=== PATIENT | male | born 1930 | race Caucasian/White ===

== ENCOUNTER 2017-01-02 11:58 | Emergency (ER) | payer MEDICARE, OTHER ==
[~2017-01-02 11:58] MED LIST: ASPIRIN EC325 MG PO; BACTRIM DS TAB1 EACH PO; CALCIUM 250+D1 EACH PO; CATAPRES0.1 MG PO; CLEOCIN150 MG PO; COLACE100 MG PO; COZAAR50 MG PO; DULCOLAX5 MG PO; FLANDERS BUTTO113 GM TOP; FLOMAX0.4 MG PO; GLUCOTROL XL5 MG PO; GLUCOTROL10 MG PO; HYDRALAZINE HCL10 MG PO; JUVEN PACKET1 EACH PO; KRISTALOSE20 GM PO; LEVAQUIN250 MG PO; MILK OF MA400 MG/5 M PO; ONDANSETRON HCL4 MG PO; PROSCAR5 MG PO; PROTONIX40 MG PO; TENORMIN50 MG PO; XANAX0.5 MG PO
[2017-01-02 12:49] LABS: URINE BILIRUBIN NEGATIVE (NEGATIVE); URINE BLOOD 3+ (NEGATIVE); URINE GLUCOSE (UA) 100 mg/dL (NORMAL); URINE KETONE TRACE (NEGATIVE); URINE LEUKOCYTE ESTERASE 2+ (NEGATIVE); URINE NITRATE NEGATIVE (NEGATIVE); URINE PROTEIN 3+ (NEGATIVE); UROBILINOGEN NORMAL mg/dL (<1.0)
[2017-01-02 13:05] LABS: URINE RBC TNTC /[HPF] (0-2)
== END 2017-01-02 13:46 | disposition home or self-care (01) ==
LOC: ER 11:58
PROVIDERS: Internal Medicine
DX: T83.84XA Pain due to genitourinary prosthetic devices, implants and grafts, initial encounter (principal); R31.9 Hematuria, unspecified; R30.0 Dysuria; Z87.440 Personal history of urinary (tract) infections; Z88.8 Allergy status to other drugs, medicaments and biological substances
CPT/HCPCS: 81001; 99070; 99283

== ENCOUNTER 2017-01-07 10:52 | Emergency (ER) | payer MEDICARE, OTHER ==
[2017-01-07 11:30] LABS: BASO # 0.1 10_X3_uL (0.0-0.1); BASO % 0.9 % (0.2-1.2); EOS # 0.2 10_X3_uL (0.0-0.5); EOS % 2.6 % (0.8-7.0); GRAN # 4.3 10_X3_uL (1.8-5.4); GRAN % 62.2 % (34.0-67.9); HEMATOCRIT 33.3 % (40-51); HEMOGLOBIN 11.6 g/dL (13.7-17.5); LYMPH # 1.9 10_X3_uL (1.3-3.6); LYMPH % 27.5 % (21.8-53.1); MEAN CORPUSCULAR HEMOGLOBIN 29.8 pg (27.0-33.0); MEAN CORPUSCULAR HGB CONC 34.8 g/dL (32.0-36.0); MEAN CORPUSCULAR VOLUME 85.6 fL (79-92); MEAN PLATELET VOLUME 9.1 fl (7.5-11.5); MONO # 0.5 10_X3_uL (0.3-0.8); MONO % 6.8 % (5.3-12.2); PLATELET COUNT 110 x10_3/uL (163-337); RED BLOOD COUNT 3.89 x10_6/uL (4.6-6.1); RED CELL DISTRIBUTION WIDTH 13.6 % (11.6-14.4); WHITE BLOOD COUNT 6.9 x10_3/uL (4.2-9.1)
[2017-01-07 11:40] LABS: URINE BILIRUBIN NEGATIVE (NEGATIVE); URINE BLOOD 3+ (NEGATIVE); URINE GLUCOSE (UA) NORMAL (NORMAL); URINE KETONE NEGATIVE (NEGATIVE); URINE LEUKOCYTE ESTERASE 2+ (NEGATIVE); URINE NITRATE POSITIVE (NEGATIVE); URINE PROTEIN 3+ (NEGATIVE); URINE RBC TNTC /[HPF] (0-2); URINE SQUAMOUS EPITHELIAL CELL 0-10 /[HPF] (NONE SEEN); URINE WBC 0-5 /[HPF] (0-3); UROBILINOGEN NORMAL mg/dL (<1.0)
[2017-01-07 11:45] LABS: CREATININE 1.6 mg/dL (0.6-1.3)
== END 2017-01-07 12:12 | disposition home or self-care (01) ==
LOC: ER 10:52
PROVIDERS: Family Medicine
DX: N40.0 Benign prostatic hyperplasia without lower urinary tract symptoms (principal); N41.9 Inflammatory disease of prostate, unspecified; Z88.8 Allergy status to other drugs, medicaments and biological substances
CPT/HCPCS: 36415; 51702; 80048; 81001; 85025; 99070; 99282; 99283

== ENCOUNTER 2017-01-17 14:40 | Emergency (ER) | payer MEDICARE, OTHER ==
[2017-01-17 16:29] LABS: URINE BILIRUBIN NEGATIVE (NEGATIVE); URINE BLOOD TRACE (NEGATIVE); URINE GLUCOSE (UA) 100 mg/dL (NORMAL); URINE KETONE NEGATIVE (NEGATIVE); URINE LEUKOCYTE ESTERASE TRACE (NEGATIVE); URINE NITRATE NEGATIVE (NEGATIVE); URINE PROTEIN 3+ (NEGATIVE); UROBILINOGEN NORMAL mg/dL (<1.0)
[2017-01-17 16:54] LABS: URINE BACTERIA FEW (NONE SEEN); URINE FINE GRANULAR CAST 0-2 /[HPF] (NONE SEEN); URINE HYALINE CAST RARE /[HPF] (0-1/hpf); URINE RENAL EPITHELIAL CELLS RARE /[HPF] (NONE SEEN)
== END 2017-01-17 18:00 | disposition home or self-care (01) ==
LOC: ER 14:40
PROVIDERS: General Practice
DX: T83.518A Infection and inflammatory reaction due to other urinary catheter, initial encounter (principal); N39.0 Urinary tract infection, site not specified; Z79.899 Other long term (current) drug therapy; Z88.8 Allergy status to other drugs, medicaments and biological substances
CPT/HCPCS: 51702; 81001; 87086; 87186; 99070; 99282; 99283

== ENCOUNTER 2017-01-21 10:22 | Observation (INO) | payer MEDICARE | END 2017-01-22 09:50 | disposition other institution (70) | LOC: MS 10:22 | PROVIDERS: ADMIT Family Medicine | DX: N39.0 Urinary tract infection, site not specified (principal); E11.22 Type 2 diabetes mellitus with diabetic chronic kidney disease; I13.0 Hypertensive heart and chronic kidney disease with heart failure and stage 1 through stage 4 chronic kidney disease, or unspecified chronic kidney disease; N18.9 Chronic kidney disease, unspecified; I50.33 Acute on chronic diastolic (congestive) heart failure; N17.9 Acute kidney failure, unspecified; J44.0 Chronic obstructive pulmonary disease with (acute) lower respiratory infection; J18.9 Pneumonia, unspecified organism; D69.6 Thrombocytopenia, unspecified; R41.0 Disorientation, unspecified; D64.9 Anemia, unspecified; B96.5 Pseudomonas (aeruginosa) (mallei) (pseudomallei) as the cause of diseases classified elsewhere; R06.02 Shortness of breath; R05 Cough; Z98.42 Cataract extraction status, left eye; Z98.41 Cataract extraction status, right eye; Z79.82 Long term (current) use of aspirin; Z79.899 Other long term (current) drug therapy; Z79.84 Long term (current) use of oral hypoglycemic drugs; Z16.24 Resistance to multiple antibiotics | CPT/HCPCS: 36415; 80053; 85025; 96365; 96367; 99070; G0378 ==

== ENCOUNTER 2017-01-21 10:22 | Inpatient (IN) | payer MEDICARE, OTHER ==
[~2017-01-21] VITALS: Ht 180.3 cm; Wt 79.0 kg
[2017-01-21 12:45] LABS: ALBUMIN 2.5 gm/dL (3.4-5.0); BILIRUBIN,TOTAL 0.24 mg/dL (0.0-1.0); CALCIUM 7.6 mg/dL (8.7-10.7); CREATININE 1.7 mg/dL (0.6-1.3); POTASSIUM 3.9 mmol/L (3.5-5.1); TOTAL PROTEIN 5.1 gm/dL (6.4-8.2)
[2017-01-21 17:11] LABS: BASO # 0.1 10_X3_uL (0.0-0.1); BASO % 1.4 % (0.2-1.2); EOS # 0.1 10_X3_uL (0.0-0.5); EOS % 2.5 % (0.8-7.0); GRAN # 3.4 10_X3_uL (1.8-5.4); GRAN % 66.6 % (34.0-67.9); HEMATOCRIT 30.2 % (40-51); LYMPH # 1.1 10_X3_uL (1.3-3.6); LYMPH % 20.9 % (21.8-53.1); MEAN CORPUSCULAR HEMOGLOBIN 29.7 pg (27.0-33.0); MEAN CORPUSCULAR HGB CONC 33.1 g/dL (32.0-36.0); MEAN CORPUSCULAR VOLUME 89.6 fL (79-92); MONO # 0.4 10_X3_uL (0.3-0.8); MONO % 8.6 % (5.3-12.2); PLATELET COUNT 76 x10_3/uL (163-337); RED BLOOD COUNT 3.37 x10_6/uL (4.6-6.1); RED CELL DISTRIBUTION WIDTH 13.6 % (11.6-14.4); WHITE BLOOD COUNT 5.1 x10_3/uL (4.2-9.1)
[2017-01-22 07:50] LABS: BASO % 0.9 % (0.2-1.2); EOS # 0.3 10_X3_uL (0.0-0.5); EOS % 6.9 % (0.8-7.0); GRAN # 2.4 10_X3_uL (1.8-5.4); GRAN % 51.3 % (34.0-67.9); HEMATOCRIT 26.4 % (40-51); HEMOGLOBIN 8.7 g/dL (13.7-17.5); LYMPH # 1.4 10_X3_uL (1.3-3.6); LYMPH % 29.6 % (21.8-53.1); MEAN CORPUSCULAR HEMOGLOBIN 29.6 pg (27.0-33.0); MEAN CORPUSCULAR VOLUME 89.8 fL (79-92); MEAN PLATELET VOLUME 10.4 fl (7.5-11.5); MONO # 0.5 10_X3_uL (0.3-0.8); MONO % 11.3 % (5.3-12.2); PLATELET COUNT 72 x10_3/uL (163-337); RED BLOOD COUNT 2.94 x10_6/uL (4.6-6.1); RED CELL DISTRIBUTION WIDTH 13.4 % (11.6-14.4); WHITE BLOOD COUNT 4.7 x10_3/uL (4.2-9.1)
[2017-01-22 07:58] LABS: ALBUMIN 2.1 gm/dL (3.4-5.0); BILIRUBIN,TOTAL 0.2 mg/dL (0.0-1.0); CALCIUM 7.2 mg/dL (8.7-10.7); CREATININE 1.8 mg/dL (0.6-1.3); POTASSIUM 4.3 mmol/L (3.5-5.1); TOTAL PROTEIN 4.3 gm/dL (6.4-8.2)
[2017-01-22 21:35] LABS: CKMB 1.6 ng/ml (0.0-5.0); TROP-I < 0.30 NG/ML (0.00-0.30)
[2017-01-23 07:48] LABS: HEMATOCRIT 27.1 % (40-51); HEMOGLOBIN 8.9 g/dL (13.7-17.5); MEAN CORPUSCULAR HEMOGLOBIN 29.7 pg (27.0-33.0); MEAN CORPUSCULAR HGB CONC 32.8 g/dL (32.0-36.0); MEAN CORPUSCULAR VOLUME 90.3 fL (79-92); RED CELL DISTRIBUTION WIDTH 13.2 % (11.6-14.4)
[2017-01-23 07:54] LABS: CALCIUM 7.1 mg/dL (8.7-10.7); POTASSIUM 4.3 mmol/L (3.5-5.1)
[2017-01-24 07:39] LABS: HEMOGLOBIN 10.1 g/dL (13.7-17.5); MEAN CORPUSCULAR HEMOGLOBIN 29.7 pg (27.0-33.0); MEAN CORPUSCULAR HGB CONC 32.6 g/dL (32.0-36.0); MEAN CORPUSCULAR VOLUME 91.2 fL (79-92); MEAN PLATELET VOLUME 10.5 fl (7.5-11.5); RED BLOOD COUNT 3.4 x10_6/uL (4.6-6.1); RED CELL DISTRIBUTION WIDTH 13.3 % (11.6-14.4); WHITE BLOOD COUNT 7.3 x10_3/uL (4.2-9.1)
[2017-01-24 07:50] LABS: CALCIUM 7.5 mg/dL (8.7-10.7); CREATININE 2.2 mg/dL (0.6-1.3); POTASSIUM 4.4 mmol/L (3.5-5.1)
[2017-01-25 07:17] LABS: CALCIUM 7.4 mg/dL (8.7-10.7); CREATININE 1.9 mg/dL (0.6-1.3); MAGNESIUM 2.1 mg/dL (1.8-2.4); POTASSIUM 4.7 mmol/L (3.5-5.1)
[2017-01-26 07:30] LABS: HEMATOCRIT 26.9 % (40-51); HEMOGLOBIN 8.8 g/dL (13.7-17.5); MEAN CORPUSCULAR HEMOGLOBIN 29.6 pg (27.0-33.0); MEAN CORPUSCULAR HGB CONC 32.7 g/dL (32.0-36.0); MEAN CORPUSCULAR VOLUME 90.6 fL (79-92); MEAN PLATELET VOLUME 10.4 fl (7.5-11.5); RED BLOOD COUNT 2.97 x10_6/uL (4.6-6.1); RED CELL DISTRIBUTION WIDTH 12.8 % (11.6-14.4)
[2017-01-26 07:39] LABS: CALCIUM 7.2 mg/dL (8.7-10.7); CREATININE 2.1 mg/dL (0.6-1.3); POTASSIUM 4.6 mmol/L (3.5-5.1)
== END 2017-01-26 10:59 | disposition swing bed (61) | DRG 689 ==
LOC: MS 10:22
PROVIDERS: ADMIT Family Medicine
DX: N39.0 Urinary tract infection, site not specified (principal); I50.33 Acute on chronic diastolic (congestive) heart failure; J18.9 Pneumonia, unspecified organism; I13.0 Hypertensive heart and chronic kidney disease with heart failure and stage 1 through stage 4 chronic kidney disease, or unspecified chronic kidney disease; N17.9 Acute kidney failure, unspecified; J44.0 Chronic obstructive pulmonary disease with (acute) lower respiratory infection; E11.22 Type 2 diabetes mellitus with diabetic chronic kidney disease; N18.9 Chronic kidney disease, unspecified; D69.6 Thrombocytopenia, unspecified; R41.0 Disorientation, unspecified; D64.9 Anemia, unspecified; R05 Cough; R06.02 Shortness of breath; B96.5 Pseudomonas (aeruginosa) (mallei) (pseudomallei) as the cause of diseases classified elsewhere; Z16.24 Resistance to multiple antibiotics; Z98.42 Cataract extraction status, left eye; Z98.41 Cataract extraction status, right eye; Z79.82 Long term (current) use of aspirin; Z79.899 Other long term (current) drug therapy; Z79.84 Long term (current) use of oral hypoglycemic drugs
CPT/HCPCS: 36415; 71020; 80048; 80053; 80061; 82550; 82553; 82962; 83036; 83735; 83880; 85025; 93306; 99070; J7040

== ENCOUNTER 2017-01-26 11:23 | Inpatient (IN) | payer MEDICARE, OTHER ==
[~2017-01-26] VITALS: Ht 180.3 cm; Wt 91.0 kg
[2017-01-27 07:32] LABS: HEMATOCRIT 27.7 % (40-51); HEMOGLOBIN 9.2 g/dL (13.7-17.5); MEAN CORPUSCULAR HEMOGLOBIN 29.9 pg (27.0-33.0); MEAN CORPUSCULAR HGB CONC 33.2 g/dL (32.0-36.0); MEAN CORPUSCULAR VOLUME 89.9 fL (79-92); MEAN PLATELET VOLUME 10.7 fl (7.5-11.5); RED BLOOD COUNT 3.08 x10_6/uL (4.6-6.1); RED CELL DISTRIBUTION WIDTH 12.6 % (11.6-14.4); WHITE BLOOD COUNT 5.1 x10_3/uL (4.2-9.1)
[2017-01-27 07:45] LABS: CALCIUM 7.4 mg/dL (8.7-10.7); CREATININE 2.1 mg/dL (0.6-1.3); POTASSIUM 4.8 mmol/L (3.5-5.1)
[2017-01-29 06:54] LABS: HEMATOCRIT 29.7 % (40-51); HEMOGLOBIN 9.8 g/dL (13.7-17.5); MEAN CORPUSCULAR HEMOGLOBIN 29.6 pg (27.0-33.0); MEAN CORPUSCULAR VOLUME 89.7 fL (79-92); MEAN PLATELET VOLUME 10.2 fl (7.5-11.5); RED BLOOD COUNT 3.31 x10_6/uL (4.6-6.1); RED CELL DISTRIBUTION WIDTH 12.7 % (11.6-14.4); WHITE BLOOD COUNT 5.5 x10_3/uL (4.2-9.1)
[2017-01-29 07:07] LABS: CALCIUM 7.5 mg/dL (8.7-10.7); CREATININE 1.9 mg/dL (0.6-1.3); POTASSIUM 4.9 mmol/L (3.5-5.1)
[2017-02-01 05:07] LABS: URINE BILIRUBIN NEGATIVE (NEGATIVE); URINE BLOOD TRACE (NEGATIVE); URINE GLUCOSE (UA) NORMAL (NORMAL); URINE KETONE NEGATIVE (NEGATIVE); URINE LEUKOCYTE ESTERASE TRACE (NEGATIVE); URINE NITRATE NEGATIVE (NEGATIVE); URINE PROTEIN 2+ (NEGATIVE); UROBILINOGEN NORMAL mg/dL (<1.0)
[2017-02-01 05:18] LABS: URINE SQUAMOUS EPITHELIAL CELL 0-10 /[HPF] (NONE SEEN)
[2017-02-01 08:12] LABS: HEMATOCRIT 28.9 % (40-51); HEMOGLOBIN 9.6 g/dL (13.7-17.5); MEAN CORPUSCULAR HEMOGLOBIN 29.4 pg (27.0-33.0); MEAN CORPUSCULAR HGB CONC 33.2 g/dL (32.0-36.0); MEAN CORPUSCULAR VOLUME 88.7 fL (79-92); MEAN PLATELET VOLUME 10.5 fl (7.5-11.5); RED BLOOD COUNT 3.26 x10_6/uL (4.6-6.1); RED CELL DISTRIBUTION WIDTH 12.4 % (11.6-14.4); WHITE BLOOD COUNT 7.3 x10_3/uL (4.2-9.1)
[2017-02-01 08:35] LABS: ALBUMIN 2.4 gm/dL (3.4-5.0); ALKALINE PHOSPHATASE 148 U/L (50-136); ALT/SGPT 17 U/L (7.53-40.17); AST/SGOT 23 U/L (6.66-35.34); BLOOD UREA NITROGEN 67 mg/dL (7-18); CALCIUM 7.7 mg/dL (8.7-10.7); CARBON DIOXIDE 23 mmol/L (21-32); CREATININE 1.8 mg/dL (0.6-1.3); GLUCOSE,RANDOM 186 mg/dL (70-99); POTASSIUM 5.5 mmol/L (3.5-5.1); SODIUM 143 mmol/L (136-145); TOTAL PROTEIN 5.1 gm/dL (6.4-8.2)
[2017-02-01 08:48] LABS: BILIRUBIN,TOTAL < 0.15 mg/dL (0.0-1.0)
== END 2017-02-01 13:15 | disposition home or self-care (01) | DRG 558 ==
LOC: SWING 11:23
PROVIDERS: Family Medicine; ADMIT Family Medicine
DX: M62.50 Muscle wasting and atrophy, not elsewhere classified, unspecified site (principal); N39.0 Urinary tract infection, site not specified; Z16.24 Resistance to multiple antibiotics; R53.1 Weakness; J44.9 Chronic obstructive pulmonary disease, unspecified; R10.30 Lower abdominal pain, unspecified; E11.9 Type 2 diabetes mellitus without complications; R60.0 Localized edema; I10 Essential (primary) hypertension; I51.9 Heart disease, unspecified; Z79.82 Long term (current) use of aspirin; Z79.899 Other long term (current) drug therapy; Z79.84 Long term (current) use of oral hypoglycemic drugs; Z88.8 Allergy status to other drugs, medicaments and biological substances
CPT/HCPCS: 36415; 80048; 80053; 81001; 82962; 83880; 94640; 94664; 97110; 97116; 99070; J2930

== ENCOUNTER 2017-02-03 11:06 | Emergency (ER) | payer MEDICARE, OTHER ==
[2017-02-03 11:27] LABS: BASO # 0.1 10_X3_uL (0.0-0.1); BASO % 0.6 % (0.2-1.2); EOS # 0.2 10_X3_uL (0.0-0.5); GRAN # 7.7 10_X3_uL (1.8-5.4); GRAN % 66.7 % (34.0-67.9); HEMATOCRIT 33.9 % (40-51); HEMOGLOBIN 11.6 g/dL (13.7-17.5); LYMPH # 2.6 10_X3_uL (1.3-3.6); LYMPH % 22.7 % (21.8-53.1); MEAN CORPUSCULAR HEMOGLOBIN 30.5 pg (27.0-33.0); MEAN CORPUSCULAR HGB CONC 34.2 g/dL (32.0-36.0); MEAN CORPUSCULAR VOLUME 89.2 fL (79-92); MONO # 0.9 10_X3_uL (0.3-0.8); PLATELET COUNT 207 x10_3/uL (163-337); RED CELL DISTRIBUTION WIDTH 13.1 % (11.6-14.4); WHITE BLOOD COUNT 11.5 x10_3/uL (4.2-9.1)
[2017-02-03 11:38] LABS: BILIRUBIN,TOTAL 0.24 mg/dL (0.0-1.0); CALCIUM 8.2 mg/dL (8.7-10.7); CREATININE 1.6 mg/dL (0.6-1.3); TOTAL PROTEIN 6.1 gm/dL (6.4-8.2)
[2017-02-03 11:44] LABS: ARTERIAL BLD GAS O2 SATURATION 98.6 % (94-98); ARTERIAL BLOOD GAS BASE EXCESS -1.2 mmol/L (-2.0-3.0); ARTERIAL BLOOD GAS HCO3 23.3 mmol/L (22-26); ARTERIAL BLOOD GAS PCO2 40.3 mmHg (35-48); ARTERIAL BLOOD GAS pH 7.38 (7.35-7.45)
[2017-02-03 12:20] LABS: URINE BILIRUBIN NEGATIVE (NEGATIVE); URINE BLOOD TRACE (NEGATIVE); URINE GLUCOSE (UA) NORMAL (NORMAL); URINE KETONE NEGATIVE (NEGATIVE); URINE LEUKOCYTE ESTERASE NEGATIVE (NEGATIVE); URINE NITRATE NEGATIVE (NEGATIVE); URINE PROTEIN 2+ (NEGATIVE); UROBILINOGEN NORMAL mg/dL (<1.0)
[2017-02-03 12:22] LABS: POTASSIUM 4.8 mmol/L (3.5-5.1)
[2017-02-03 12:31] LABS: URINE AMORPHOUS SEDIMENT 1+; URINE BACTERIA FEW (NONE SEEN); URINE RBC 0-5 /[HPF] (0-2); URINE SQUAMOUS EPITHELIAL CELL 0-10 /[HPF] (NONE SEEN); URINE WBC RARE /[HPF] (0-3)
== END 2017-02-03 15:45 | disposition left against medical advice (07) ==
LOC: ER 11:06
PROVIDERS: Emergency Medicine
DX: J81.1 Chronic pulmonary edema (principal); E11.9 Type 2 diabetes mellitus without complications; I10 Essential (primary) hypertension; R05 Cough; Z88.8 Allergy status to other drugs, medicaments and biological substances; Z79.899 Other long term (current) drug therapy; Z99.81 Dependence on supplemental oxygen
CPT/HCPCS: 36415; 36600; 71010; 80053; 81001; 82550; 82553; 82803; 83605; 83880; 85025; 86738; 87040; 87400; 87449; 93005; 94664; 96374; 96375; 99070; 99283-25; 99284; J2930

== ENCOUNTER 2017-02-13 11:45 | Emergency (ER) | payer MEDICARE, OTHER | END 2017-02-13 14:40 | disposition home or self-care (01) | LOC: ER 11:45 | DX: N39.0 Urinary tract infection, site not specified (principal); R31.9 Hematuria, unspecified; E11.9 Type 2 diabetes mellitus without complications; R10.30 Lower abdominal pain, unspecified; N48.89 Other specified disorders of penis; Z79.899 Other long term (current) drug therapy; Z79.82 Long term (current) use of aspirin; Z79.84 Long term (current) use of oral hypoglycemic drugs ==

== ENCOUNTER 2017-02-15 12:21 | Emergency (ER) | payer MEDICARE, OTHER | END 2017-02-15 15:16 | disposition other institution (70) | LOC: ER 12:21 | DX: N39.0 Urinary tract infection, site not specified (principal); N28.9 Disorder of kidney and ureter, unspecified; M54.5 Low back pain; E11.9 Type 2 diabetes mellitus without complications; J44.9 Chronic obstructive pulmonary disease, unspecified; I10 Essential (primary) hypertension; Z79.82 Long term (current) use of aspirin; Z79.899 Other long term (current) drug therapy; Z88.8 Allergy status to other drugs, medicaments and biological substances; E89.0 Postprocedural hypothyroidism | CPT/HCPCS: 99284; 99284-25 ==

== ENCOUNTER 2017-02-15 12:21 | Inpatient (IN) | payer MEDICARE, OTHER ==
[~2017-02-15] VITALS: Ht 180.3 cm; Wt 81.0 kg
[2017-02-15 13:24] LABS: BASO # 0.1 10_X3_uL (0.0-0.1); BASO % 0.9 % (0.2-1.2); EOS # 0.7 10_X3_uL (0.0-0.5); EOS % 7.1 % (0.8-7.0); GRAN % 68.3 % (34.0-67.9); HEMATOCRIT 32.2 % (40-51); LYMPH # 1.6 10_X3_uL (1.3-3.6); LYMPH % 15.4 % (21.8-53.1); MEAN CORPUSCULAR HEMOGLOBIN 29.6 pg (27.0-33.0); MEAN CORPUSCULAR HGB CONC 34.2 g/dL (32.0-36.0); MEAN CORPUSCULAR VOLUME 86.6 fL (79-92); MEAN PLATELET VOLUME 10.5 fl (7.5-11.5); MONO # 0.9 10_X3_uL (0.3-0.8); MONO % 8.3 % (5.3-12.2); PLATELET COUNT 87 x10_3/uL (163-337); RED BLOOD COUNT 3.72 x10_6/uL (4.6-6.1); RED CELL DISTRIBUTION WIDTH 13.3 % (11.6-14.4); WHITE BLOOD COUNT 10.3 x10_3/uL (4.2-9.1)
[2017-02-15 13:28] LABS: URINE BILIRUBIN NEGATIVE (NEGATIVE); URINE BLOOD 1+ (NEGATIVE); URINE GLUCOSE (UA) 50 mg/dL (NORMAL); URINE KETONE NEGATIVE (NEGATIVE); URINE LEUKOCYTE ESTERASE TRACE (NEGATIVE); URINE NITRATE NEGATIVE (NEGATIVE); URINE PROTEIN 3+ (NEGATIVE); UROBILINOGEN NORMAL mg/dL (<1.0)
[2017-02-15 13:39] LABS: URINE BACTERIA TRACE (NONE SEEN); URINE MUCUS TRACE; URINE WBC 0-5 /[HPF] (0-3)
[2017-02-15 13:41] LABS: ALBUMIN 2.5 gm/dL (3.4-5.0); BILIRUBIN,TOTAL 0.39 mg/dL (0.0-1.0); CALCIUM 7.6 mg/dL (8.7-10.7); CREATININE 1.7 mg/dL (0.6-1.3); TOTAL PROTEIN 5.5 gm/dL (6.4-8.2)
[2017-02-16 07:06] LABS: BASO # 0.1 10_X3_uL (0.0-0.1); BASO % 0.6 % (0.2-1.2); EOS # 0.6 10_X3_uL (0.0-0.5); EOS % 6.9 % (0.8-7.0); GRAN # 5.2 10_X3_uL (1.8-5.4); GRAN % 63.5 % (34.0-67.9); HEMATOCRIT 28.5 % (40-51); HEMOGLOBIN 9.6 g/dL (13.7-17.5); LYMPH # 1.6 10_X3_uL (1.3-3.6); LYMPH % 19.4 % (21.8-53.1); MEAN CORPUSCULAR HEMOGLOBIN 29.5 pg (27.0-33.0); MEAN CORPUSCULAR HGB CONC 33.7 g/dL (32.0-36.0); MEAN CORPUSCULAR VOLUME 87.7 fL (79-92); MEAN PLATELET VOLUME 10.5 fl (7.5-11.5); MONO # 0.8 10_X3_uL (0.3-0.8); MONO % 9.6 % (5.3-12.2); PLATELET COUNT 83 x10_3/uL (163-337); RED BLOOD COUNT 3.25 x10_6/uL (4.6-6.1); WHITE BLOOD COUNT 8.1 x10_3/uL (4.2-9.1)
[2017-02-16 07:22] LABS: ALBUMIN 2.1 gm/dL (3.4-5.0); BILIRUBIN,TOTAL 0.37 mg/dL (0.0-1.0); CALCIUM 7.2 mg/dL (8.7-10.7); CREATININE 1.7 mg/dL (0.6-1.3); POTASSIUM 3.6 mmol/L (3.5-5.1); TOTAL PROTEIN 4.8 gm/dL (6.4-8.2)
[2017-02-16 16:12] LABS: PH,URINE 6.5 (5.0 - 9.0); URINE BILIRUBIN NEGATIVE (NEGATIVE); URINE BLOOD TRACE (NEGATIVE); URINE GLUCOSE (UA) 100 mg/dL (NORMAL); URINE KETONE TRACE (NEGATIVE); URINE LEUKOCYTE ESTERASE TRACE (NEGATIVE); URINE NITRATE NEGATIVE (NEGATIVE); URINE PROTEIN 3+ (NEGATIVE); UROBILINOGEN NORMAL mg/dL (<1.0)
[2017-02-16 17:05] LABS: URINE BACTERIA FEW (NONE SEEN); URINE SQUAMOUS EPITHELIAL CELL 0-10 /[HPF] (NONE SEEN); URINE WBC >15 /[HPF] (0-3)
[2017-02-16 17:06] LABS: URINE FINE GRANULAR CAST 0-2 /[HPF] (NONE SEEN); URINE HYALINE CAST 0-2 /[HPF] (0-1/hpf); URINE YEAST FEW (NONE SEEN)
[2017-02-17 06:35] LABS: HEMATOCRIT 28.4 % (40-51); HEMOGLOBIN 9.4 g/dL (13.7-17.5); MEAN CORPUSCULAR HGB CONC 33.1 g/dL (32.0-36.0); MEAN CORPUSCULAR VOLUME 87.7 fL (79-92); RED BLOOD COUNT 3.24 x10_6/uL (4.6-6.1); RED CELL DISTRIBUTION WIDTH 13.2 % (11.6-14.4); WHITE BLOOD COUNT 7.4 x10_3/uL (4.2-9.1)
[2017-02-17 06:53] LABS: CALCIUM 7.5 mg/dL (8.7-10.7); CREATININE 1.6 mg/dL (0.6-1.3); POTASSIUM 3.6 mmol/L (3.5-5.1)
[2017-02-19 16:23] LABS: URINE BILIRUBIN NEGATIVE (NEGATIVE); URINE BLOOD TRACE (NEGATIVE); URINE GLUCOSE (UA) 50 mg/dL (NORMAL); URINE KETONE NEGATIVE (NEGATIVE); URINE LEUKOCYTE ESTERASE TRACE (NEGATIVE); URINE NITRATE NEGATIVE (NEGATIVE); URINE PROTEIN 3+ (NEGATIVE); UROBILINOGEN NORMAL mg/dL (<1.0)
[2017-02-19 16:56] LABS: URINE BACTERIA FEW (NONE SEEN); URINE MUCUS TRACE; URINE RBC 0-5 /[HPF] (0-2); URINE SQUAMOUS EPITHELIAL CELL 0-10 /[HPF] (NONE SEEN); URINE WBC RARE /[HPF] (0-3)
[2017-02-20 06:41] LABS: HEMOGLOBIN 9.4 g/dL (13.7-17.5); MEAN CORPUSCULAR HEMOGLOBIN 29.3 pg (27.0-33.0); MEAN CORPUSCULAR HGB CONC 33.6 g/dL (32.0-36.0); MEAN CORPUSCULAR VOLUME 87.2 fL (79-92); MEAN PLATELET VOLUME 9.7 fl (7.5-11.5); RED BLOOD COUNT 3.21 x10_6/uL (4.6-6.1); RED CELL DISTRIBUTION WIDTH 12.9 % (11.6-14.4); WHITE BLOOD COUNT 6.8 x10_3/uL (4.2-9.1)
[2017-02-20 06:59] LABS: ALBUMIN 2.1 gm/dL (3.4-5.0); BILIRUBIN,TOTAL 0.38 mg/dL (0.0-1.0); CALCIUM 7.5 mg/dL (8.7-10.7); CREATININE 1.3 mg/dL (0.6-1.3); TOTAL PROTEIN 4.8 gm/dL (6.4-8.2)
[2017-02-21 06:57] LABS: HEMATOCRIT 28.3 % (40-51); HEMOGLOBIN 9.6 g/dL (13.7-17.5); MEAN CORPUSCULAR HEMOGLOBIN 29.5 pg (27.0-33.0); MEAN CORPUSCULAR HGB CONC 33.9 g/dL (32.0-36.0); MEAN CORPUSCULAR VOLUME 87.1 fL (79-92); MEAN PLATELET VOLUME 10.2 fl (7.5-11.5); RED BLOOD COUNT 3.25 x10_6/uL (4.6-6.1); RED CELL DISTRIBUTION WIDTH 12.9 % (11.6-14.4); WHITE BLOOD COUNT 7.3 x10_3/uL (4.2-9.1)
[2017-02-21 07:12] LABS: BILIRUBIN,TOTAL 0.21 mg/dL (0.0-1.0); CALCIUM 7.5 mg/dL (8.7-10.7); CREATININE 1.4 mg/dL (0.6-1.3); POTASSIUM 4.2 mmol/L (3.5-5.1); TOTAL PROTEIN 4.7 gm/dL (6.4-8.2)
[2017-02-22 06:51] LABS: HEMATOCRIT 28.8 % (40-51); HEMOGLOBIN 9.8 g/dL (13.7-17.5); MEAN CORPUSCULAR HEMOGLOBIN 29.3 pg (27.0-33.0); MEAN CORPUSCULAR VOLUME 86.2 fL (79-92); MEAN PLATELET VOLUME 10.1 fl (7.5-11.5); RED BLOOD COUNT 3.34 x10_6/uL (4.6-6.1); WHITE BLOOD COUNT 6.8 x10_3/uL (4.2-9.1)
[2017-02-22 06:57] LABS: BLOOD UREA NITROGEN 26 mg/dL (7-18); CALCIUM 7.2 mg/dL (8.7-10.7); CARBON DIOXIDE 25 mmol/L (21-32); CREATININE 1.2 mg/dL (0.6-1.3); GLUCOSE,RANDOM 100 mg/dL (70-99); POTASSIUM 4.4 mmol/L (3.5-5.1); SODIUM 144 mmol/L (136-145)
[2017-02-23 07:30] LABS: HEMATOCRIT 29.1 % (40-51); HEMOGLOBIN 9.7 g/dL (13.7-17.5); MEAN CORPUSCULAR HGB CONC 33.3 g/dL (32.0-36.0); MEAN CORPUSCULAR VOLUME 87.1 fL (79-92); MEAN PLATELET VOLUME 10.1 fl (7.5-11.5); RED BLOOD COUNT 3.34 x10_6/uL (4.6-6.1); RED CELL DISTRIBUTION WIDTH 12.9 % (11.6-14.4); WHITE BLOOD COUNT 6.3 x10_3/uL (4.2-9.1)
[2017-02-23 07:48] LABS: CALCIUM 7.4 mg/dL (8.7-10.7); CREATININE 1.4 mg/dL (0.6-1.3); MAGNESIUM 1.9 mg/dL (1.8-2.4); POTASSIUM 4.6 mmol/L (3.5-5.1)
== END 2017-02-23 12:35 | disposition swing bed (61) | DRG 690 ==
LOC: ER 12:21 → MS 15:16
PROVIDERS: Emergency Medicine; Family Medicine; ADMIT Family Medicine
DX: N39.0 Urinary tract infection, site not specified (principal); I13.0 Hypertensive heart and chronic kidney disease with heart failure and stage 1 through stage 4 chronic kidney disease, or unspecified chronic kidney disease; E11.22 Type 2 diabetes mellitus with diabetic chronic kidney disease; N18.9 Chronic kidney disease, unspecified; I50.9 Heart failure, unspecified; M62.50 Muscle wasting and atrophy, not elsewhere classified, unspecified site; B95.2 Enterococcus as the cause of diseases classified elsewhere; B96.5 Pseudomonas (aeruginosa) (mallei) (pseudomallei) as the cause of diseases classified elsewhere; G89.29 Other chronic pain; M54.9 Dorsalgia, unspecified; J44.9 Chronic obstructive pulmonary disease, unspecified; R53.1 Weakness; M25.551 Pain in right hip; R32 Unspecified urinary incontinence; D18.1 Lymphangioma, any site; Z16.24 Resistance to multiple antibiotics; Z87.891 Personal history of nicotine dependence; Z88.8 Allergy status to other drugs, medicaments and biological substances; Z79.82 Long term (current) use of aspirin; Z79.899 Other long term (current) drug therapy
CPT/HCPCS: 36415; 70450; 71010; 72072; 72131; 73502; 80048; 80053; 80061; 81001; 82962; 83605; 83735; 83880; 85025; 87040; 87086; 96365; 99070; 99284; 99284-25

== ENCOUNTER 2017-02-23 12:43 | Inpatient (IN) | payer MEDICARE, OTHER ==
[~2017-02-23] VITALS: Ht 180.3 cm; Wt 90.4 kg
[2017-02-25 06:50] LABS: CALCIUM 7.4 mg/dL (8.7-10.7); CREATININE 1.4 mg/dL (0.6-1.3); POTASSIUM 4.6 mmol/L (3.5-5.1)
[2017-02-25 06:55] LABS: HEMATOCRIT 27.2 % (40-51); HEMOGLOBIN 8.7 g/dL (13.7-17.5); MEAN CORPUSCULAR HEMOGLOBIN 28.2 pg (27.0-33.0); MEAN PLATELET VOLUME 9.6 fl (7.5-11.5); RED BLOOD COUNT 3.09 x10_6/uL (4.6-6.1); RED CELL DISTRIBUTION WIDTH 12.8 % (11.6-14.4); WHITE BLOOD COUNT 6.8 x10_3/uL (4.2-9.1)
[2017-02-25 07:25] LABS: URINE BILIRUBIN NEGATIVE (NEGATIVE); URINE BLOOD NEGATIVE (NEGATIVE); URINE GLUCOSE (UA) NORMAL (NORMAL); URINE KETONE NEGATIVE (NEGATIVE); URINE LEUKOCYTE ESTERASE TRACE (NEGATIVE); URINE NITRATE NEGATIVE (NEGATIVE); URINE PROTEIN 3+ (NEGATIVE); UROBILINOGEN NORMAL mg/dL (<1.0)
[2017-02-25 07:54] LABS: URINE AMORPHOUS SEDIMENT TRACE; URINE BACTERIA TRACE (NONE SEEN); URINE HYALINE CAST 0-2 /[HPF] (0-1/hpf); URINE RBC 0-5 /[HPF] (0-2); URINE SQUAMOUS EPITHELIAL CELL 0-10 /[HPF] (NONE SEEN); URINE YEAST FEW (NONE SEEN)
== END 2017-02-26 11:47 | disposition home or self-care (01) | DRG 558 ==
LOC: SWING 12:43
PROVIDERS: ADMIT Family Medicine
DX: M62.50 Muscle wasting and atrophy, not elsewhere classified, unspecified site (principal); N39.0 Urinary tract infection, site not specified; Z16.30 Resistance to unspecified antimicrobial drugs; B95.2 Enterococcus as the cause of diseases classified elsewhere; B96.5 Pseudomonas (aeruginosa) (mallei) (pseudomallei) as the cause of diseases classified elsewhere; I12.9 Hypertensive chronic kidney disease with stage 1 through stage 4 chronic kidney disease, or unspecified chronic kidney disease; N18.2 Chronic kidney disease, stage 2 (mild); G89.29 Other chronic pain; M54.9 Dorsalgia, unspecified; R32 Unspecified urinary incontinence; R53.1 Weakness; Z79.82 Long term (current) use of aspirin; Z79.899 Other long term (current) drug therapy; Z88.8 Allergy status to other drugs, medicaments and biological substances
CPT/HCPCS: 36415; 80048; 81001; 82962; 87086; 97116; 99070

== ENCOUNTER 2017-03-30 06:51 | Emergency (ER) | payer MEDICARE | END 2017-03-30 10:38 | disposition other institution (70) | LOC: ER 06:51 | DX: N39.0 Urinary tract infection, site not specified (principal); E16.2 Hypoglycemia, unspecified; Z79.899 Other long term (current) drug therapy; Z88.8 Allergy status to other drugs, medicaments and biological substances | CPT/HCPCS: 99283; 99285-25 ==

== ENCOUNTER 2017-03-30 06:51 | Inpatient (IN) | payer MEDICARE, OTHER ==
[~2017-03-30] VITALS: Ht 180.3 cm; Wt 71.0 kg
[2017-03-30 08:34] LABS: BASO # 0.1 10_X3_uL (0.0-0.1); BASO % 1.2 % (0.2-1.2); EOS # 0.1 10_X3_uL (0.0-0.5); EOS % 1.7 % (0.8-7.0); GRAN # 4.2 10_X3_uL (1.8-5.4); GRAN % 68.7 % (34.0-67.9); HEMOGLOBIN 10.3 g/dL (13.7-17.5); LYMPH # 1.2 10_X3_uL (1.3-3.6); LYMPH % 20.3 % (21.8-53.1); MEAN CORPUSCULAR HEMOGLOBIN 29.3 pg (27.0-33.0); MEAN CORPUSCULAR HGB CONC 33.2 g/dL (32.0-36.0); MEAN CORPUSCULAR VOLUME 88.1 fL (79-92); MEAN PLATELET VOLUME 9.7 fl (7.5-11.5); MONO # 0.5 10_X3_uL (0.3-0.8); MONO % 8.1 % (5.3-12.2); PLATELET COUNT 101 x10_3/uL (163-337); RED BLOOD COUNT 3.52 x10_6/uL (4.6-6.1); RED CELL DISTRIBUTION WIDTH 14.2 % (11.6-14.4); WHITE BLOOD COUNT 6.1 x10_3/uL (4.2-9.1)
[2017-03-30 08:41] LABS: URINE BILIRUBIN NEGATIVE (NEGATIVE); URINE BLOOD TRACE (NEGATIVE); URINE GLUCOSE (UA) NORMAL (NORMAL); URINE KETONE NEGATIVE (NEGATIVE); URINE LEUKOCYTE ESTERASE 2+ (NEGATIVE); URINE NITRATE POSITIVE (NEGATIVE); URINE PROTEIN 2+ (NEGATIVE); UROBILINOGEN NORMAL mg/dL (<1.0)
[2017-03-30 08:42] LABS: ALBUMIN 2.4 gm/dL (3.4-5.0); BILIRUBIN,TOTAL 0.32 mg/dL (0.0-1.0); CALCIUM 7.8 mg/dL (8.7-10.7); CREATININE 1.6 mg/dL (0.6-1.3); POTASSIUM 3.8 mmol/L (3.5-5.1); TOTAL PROTEIN 5.5 gm/dL (6.4-8.2)
[2017-03-30 08:52] LABS: URINE RBC 0-5 /[HPF] (0-2); URINE WBC TNTC WITH CLUMPING /[HPF] (0-3)
[2017-03-30 08:53] LABS: URINE BACTERIA 1+ (NONE SEEN); URINE SQUAMOUS EPITHELIAL CELL 0-10 /[HPF] (NONE SEEN)
[2017-03-31 06:58] LABS: BASO # 0.1 10_X3_uL (0.0-0.1); BASO % 1.2 % (0.2-1.2); EOS # 0.3 10_X3_uL (0.0-0.5); EOS % 6.4 % (0.8-7.0); GRAN # 1.9 10_X3_uL (1.8-5.4); GRAN % 46.2 % (34.0-67.9); HEMATOCRIT 27.4 % (40-51); HEMOGLOBIN 8.9 g/dL (13.7-17.5); LYMPH # 1.4 10_X3_uL (1.3-3.6); LYMPH % 35.1 % (21.8-53.1); MEAN CORPUSCULAR HEMOGLOBIN 29.3 pg (27.0-33.0); MEAN CORPUSCULAR HGB CONC 32.5 g/dL (32.0-36.0); MEAN CORPUSCULAR VOLUME 90.1 fL (79-92); MEAN PLATELET VOLUME 10.3 fl (7.5-11.5); MONO # 0.5 10_X3_uL (0.3-0.8); MONO % 11.1 % (5.3-12.2); PLATELET COUNT 100 x10_3/uL (163-337); RED BLOOD COUNT 3.04 x10_6/uL (4.6-6.1); RED CELL DISTRIBUTION WIDTH 14.4 % (11.6-14.4); WHITE BLOOD COUNT 4.1 x10_3/uL (4.2-9.1)
[2017-03-31 07:51] LABS: ALBUMIN 2.2 gm/dL (3.4-5.0); BILIRUBIN,TOTAL 0.24 mg/dL (0.0-1.0); CALCIUM 7.3 mg/dL (8.7-10.7); CREATININE 1.9 mg/dL (0.6-1.3); POTASSIUM 4.3 mmol/L (3.5-5.1); TOTAL PROTEIN 4.7 gm/dL (6.4-8.2)
[2017-04-01 06:14] LABS: HEMATOCRIT 29.6 % (40-51); HEMOGLOBIN 9.4 g/dL (13.7-17.5); MEAN CORPUSCULAR HEMOGLOBIN 28.8 pg (27.0-33.0); MEAN CORPUSCULAR HGB CONC 31.8 g/dL (32.0-36.0); MEAN CORPUSCULAR VOLUME 90.8 fL (79-92); MEAN PLATELET VOLUME 9.9 fl (7.5-11.5); RED BLOOD COUNT 3.26 x10_6/uL (4.6-6.1); RED CELL DISTRIBUTION WIDTH 14.3 % (11.6-14.4); WHITE BLOOD COUNT 5.2 x10_3/uL (4.2-9.1)
[2017-04-01 06:27] LABS: ALBUMIN 2.2 gm/dL (3.4-5.0); BILIRUBIN,TOTAL 0.18 mg/dL (0.0-1.0); CALCIUM 7.3 mg/dL (8.7-10.7); CREATININE 1.8 mg/dL (0.6-1.3); POTASSIUM 4.8 mmol/L (3.5-5.1); TOTAL PROTEIN 4.6 gm/dL (6.4-8.2)
[2017-04-02 06:42] LABS: HEMATOCRIT 28.7 % (40-51); MEAN CORPUSCULAR HEMOGLOBIN 28.5 pg (27.0-33.0); MEAN CORPUSCULAR HGB CONC 31.4 g/dL (32.0-36.0); MEAN CORPUSCULAR VOLUME 90.8 fL (79-92); RED BLOOD COUNT 3.16 x10_6/uL (4.6-6.1); WHITE BLOOD COUNT 6.3 x10_3/uL (4.2-9.1)
[2017-04-02 06:57] LABS: CALCIUM 7.5 mg/dL (8.7-10.7); CREATININE 1.6 mg/dL (0.6-1.3); POTASSIUM 4.4 mmol/L (3.5-5.1)
== END 2017-04-03 13:25 | disposition home or self-care (01) | DRG 690 ==
LOC: ER 06:51 → MS 10:38 → UNDODEPER 04-01 13:55 → MS 04-03 13:25
PROVIDERS: Emergency Medicine; ADMIT Family Medicine
DX: N39.0 Urinary tract infection, site not specified (principal); R53.1 Weakness; I10 Essential (primary) hypertension; E11.9 Type 2 diabetes mellitus without complications; M19.90 Unspecified osteoarthritis, unspecified site; F41.9 Anxiety disorder, unspecified; B96.20 Unspecified Escherichia coli [E. coli] as the cause of diseases classified elsewhere; B96.4 Proteus (mirabilis) (morganii) as the cause of diseases classified elsewhere; B96.5 Pseudomonas (aeruginosa) (mallei) (pseudomallei) as the cause of diseases classified elsewhere; Z16.24 Resistance to multiple antibiotics; R06.02 Shortness of breath; N28.9 Disorder of kidney and ureter, unspecified; E16.2 Hypoglycemia, unspecified; M79.1 Myalgia; Z79.899 Other long term (current) drug therapy; Z79.82 Long term (current) use of aspirin; Z88.8 Allergy status to other drugs, medicaments and biological substances; Z80.9 Family history of malignant neoplasm, unspecified; Z82.49 Family history of ischemic heart disease and other diseases of the circulatory system
CPT/HCPCS: 36415; 80048; 80053; 80061; 81001; 82962; 85025; 87086; 87186; 93005; 96365; 96375; 99070; 99283; 99285-25

== ENCOUNTER 2017-04-10 09:14 | Inpatient (IN) | payer MEDICARE, OTHER ==
[~2017-04-10] VITALS: Ht 180.3 cm; Wt 86.0 kg
[2017-04-10 09:56] LABS: BASO # 0.1 10_X3_uL (0.0-0.1); BASO % 1.4 % (0.2-1.2); EOS # 0.4 10_X3_uL (0.0-0.5); EOS % 5.5 % (0.8-7.0); GRAN # 4.5 10_X3_uL (1.8-5.4); GRAN % 68.6 % (34.0-67.9); HEMATOCRIT 30.8 % (40-51); HEMOGLOBIN 10.4 g/dL (13.7-17.5); LYMPH # 1.2 10_X3_uL (1.3-3.6); LYMPH % 18.8 % (21.8-53.1); MEAN CORPUSCULAR HEMOGLOBIN 29.5 pg (27.0-33.0); MEAN CORPUSCULAR HGB CONC 33.8 g/dL (32.0-36.0); MEAN CORPUSCULAR VOLUME 87.3 fL (79-92); MEAN PLATELET VOLUME 9.5 fl (7.5-11.5); MONO # 0.4 10_X3_uL (0.3-0.8); MONO % 5.7 % (5.3-12.2); PLATELET COUNT 137 x10_3/uL (163-337); RED BLOOD COUNT 3.53 x10_6/uL (4.6-6.1); RED CELL DISTRIBUTION WIDTH 13.9 % (11.6-14.4); WHITE BLOOD COUNT 6.5 x10_3/uL (4.2-9.1)
[2017-04-10 10:10] LABS: CALCIUM 7.9 mg/dL (8.7-10.7); CREATININE 1.3 mg/dL (0.6-1.3); POTASSIUM 4.3 mmol/L (3.5-5.1)
[2017-04-10 17:12] LABS: CKMB 3.4 ng/ml (0.0-5.0)
[2017-04-10 17:13] LABS: TROP-I < 0.30 NG/ML (0.00-0.30)
[2017-04-10 17:58] LABS: ALBUMIN 2.5 gm/dL (3.4-5.0); ALKALINE PHOSPHATASE 129 U/L (50-136); ALT/SGPT 13 U/L (7.53-40.17); AST/SGOT 24 U/L (6.66-35.34); BILIRUBIN,TOTAL 0.22 mg/dL (0.0-1.0); TOTAL PROTEIN 5.6 gm/dL (6.4-8.2)
[2017-04-10 18:03] LABS: BILIRUBIN,DIRECT < 0.20 mg/dL (0.0-0.30)
[2017-04-10 22:48] LABS: CKMB 2.4 ng/ml (0.0-5.0); TROP-I < 0.30 NG/ML (0.00-0.30)
[2017-04-11 04:42] LABS: HEMATOCRIT 26.1 % (40-51); HEMOGLOBIN 8.6 g/dL (13.7-17.5); MEAN CORPUSCULAR HEMOGLOBIN 29.2 pg (27.0-33.0); MEAN CORPUSCULAR VOLUME 88.5 fL (79-92); MEAN PLATELET VOLUME 9.2 fl (7.5-11.5); RED BLOOD COUNT 2.95 x10_6/uL (4.6-6.1); RED CELL DISTRIBUTION WIDTH 13.7 % (11.6-14.4); WHITE BLOOD COUNT 4.8 x10_3/uL (4.2-9.1)
[2017-04-11 04:56] LABS: CKMB 1.9 ng/ml (0.0-5.0)
[2017-04-11 04:57] LABS: TROP-I < 0.30 NG/ML (0.00-0.30)
[2017-04-11 05:03] LABS: CALCIUM 7.7 mg/dL (8.7-10.7); CREATININE 1.3 mg/dL (0.6-1.3); POTASSIUM 4.3 mmol/L (3.5-5.1)
[2017-04-11 13:02] LABS: SERUM IRON 40 ug/dl (65-175); UIBC 106 ug/dL (135-370)
[2017-04-11 13:23] LABS: FOLATE 8.77 ng/mL (3.17-24.25)
[2017-04-12 06:51] LABS: HEMATOCRIT 27.1 % (40-51); HEMOGLOBIN 8.6 g/dL (13.7-17.5); MEAN CORPUSCULAR HEMOGLOBIN 28.9 pg (27.0-33.0); MEAN CORPUSCULAR HGB CONC 31.7 g/dL (32.0-36.0); MEAN CORPUSCULAR VOLUME 90.9 fL (79-92); MEAN PLATELET VOLUME 10.3 fl (7.5-11.5); RED BLOOD COUNT 2.98 x10_6/uL (4.6-6.1); RED CELL DISTRIBUTION WIDTH 13.8 % (11.6-14.4); WHITE BLOOD COUNT 5.5 x10_3/uL (4.2-9.1)
[2017-04-12 07:08] LABS: CALCIUM 7.5 mg/dL (8.7-10.7); CREATININE 1.5 mg/dL (0.6-1.3); POTASSIUM 4.3 mmol/L (3.5-5.1)
[2017-04-13 07:13] LABS: HEMATOCRIT 27.4 % (40-51); HEMOGLOBIN 8.8 g/dL (13.7-17.5); MEAN CORPUSCULAR HEMOGLOBIN 29.3 pg (27.0-33.0); MEAN CORPUSCULAR HGB CONC 32.1 g/dL (32.0-36.0); MEAN CORPUSCULAR VOLUME 91.3 fL (79-92); MEAN PLATELET VOLUME 10.2 fl (7.5-11.5); RED CELL DISTRIBUTION WIDTH 13.8 % (11.6-14.4)
[2017-04-13 07:26] LABS: CALCIUM 7.7 mg/dL (8.7-10.7); CREATININE 1.6 mg/dL (0.6-1.3); POTASSIUM 4.2 mmol/L (3.5-5.1)
== END 2017-04-13 16:15 | DRG 292 ==
LOC: ER 09:14 → MS 11:11 → UNDODEPER 04-13 11:41 → MS 04-13 16:15
PROVIDERS: Emergency Medicine; ADMIT Family Medicine
DX: I11.0 Hypertensive heart disease with heart failure (principal); N39.0 Urinary tract infection, site not specified; J90 Pleural effusion, not elsewhere classified; I50.1 Left ventricular failure, unspecified; R53.81 Other malaise; R53.1 Weakness; I34.0 Nonrheumatic mitral (valve) insufficiency; R19.5 Other fecal abnormalities; J44.9 Chronic obstructive pulmonary disease, unspecified; E11.9 Type 2 diabetes mellitus without complications; I25.10 Atherosclerotic heart disease of native coronary artery without angina pectoris; R06.02 Shortness of breath; N40.0 Benign prostatic hyperplasia without lower urinary tract symptoms; Z85.46 Personal history of malignant neoplasm of prostate; R60.0 Localized edema; I51.7 Cardiomegaly; D50.9 Iron deficiency anemia, unspecified; F41.9 Anxiety disorder, unspecified; N28.9 Disorder of kidney and ureter, unspecified; R05 Cough; Z82.49 Family history of ischemic heart disease and other diseases of the circulatory system; Z87.891 Personal history of nicotine dependence; Z99.81 Dependence on supplemental oxygen; Z79.82 Long term (current) use of aspirin; Z79.899 Other long term (current) drug therapy; Z88.8 Allergy status to other drugs, medicaments and biological substances
CPT/HCPCS: 36415; 71010; 80048; 80061; 80076; 82550; 82553; 82607; 82746; 82962; 83036; 83540; 83550; 83880; 85025; 93005; 93306; 96365; 99070; 99284; 99285-25; G0328-QW

== ENCOUNTER 2017-04-10 09:14 | Observation (INO) | payer MEDICARE, OTHER | END 2017-04-12 10:07 | disposition other institution (70) | LOC: ER 09:14 → MS 11:11 | PROVIDERS: ADMIT Family Medicine | DX: I11.0 Hypertensive heart disease with heart failure (principal); I50.1 Left ventricular failure, unspecified; N39.0 Urinary tract infection, site not specified; E11.9 Type 2 diabetes mellitus without complications; I25.10 Atherosclerotic heart disease of native coronary artery without angina pectoris; R06.02 Shortness of breath; N40.0 Benign prostatic hyperplasia without lower urinary tract symptoms; Z85.46 Personal history of malignant neoplasm of prostate; R60.0 Localized edema; I51.7 Cardiomegaly; J90 Pleural effusion, not elsewhere classified; D50.9 Iron deficiency anemia, unspecified; R53.1 Weakness; I34.0 Nonrheumatic mitral (valve) insufficiency; R19.5 Other fecal abnormalities; J44.9 Chronic obstructive pulmonary disease, unspecified; F41.9 Anxiety disorder, unspecified; N28.9 Disorder of kidney and ureter, unspecified; R05 Cough; Z82.49 Family history of ischemic heart disease and other diseases of the circulatory system; Z87.891 Personal history of nicotine dependence; Z99.81 Dependence on supplemental oxygen; Z79.82 Long term (current) use of aspirin; Z79.899 Other long term (current) drug therapy; Z88.8 Allergy status to other drugs, medicaments and biological substances | CPT/HCPCS: 36415; 71010; 80048; 80061; 80076; 82550; 82553; 82607; 82746; 82962; 83036; 83540; 83550; 83880; 85025; 93005; 93306; 96365; 99070; 99284; 99285-25; G0328-QW; G0378 ==